=== PATIENT | male | born 1970 | race African-American/Black ===

== ENCOUNTER 2021-10-26 15:34 | Outpatient (CLI) | payer OTHER | END 2021-10-26 15:35 | disposition home or self-care (01) | LOC: SCSMRI 15:34 | PROVIDERS: ATTEND Nurse Practitioner Family | DX: S76.112D Strain of left quadriceps muscle, fascia and tendon, subsequent encounter (principal); S46.912A Strain of unspecified muscle, fascia and tendon at shoulder and upper arm level, left arm, initial encounter ==

== ENCOUNTER 2021-11-03 14:52 | Outpatient (CLI) | payer BC ==
[2021-11-03 16:08] LABS: #Monocytes 0.3 10x3/uL (0.0-1.1); #Neutrophils 2.4 10x3/uL (1.5-8.4); %Basophils 0.7 % (0.0-2.0); %Eosinophils 0.7 % (0.0-6.0); %Lymphocytes 36.9 % (18.0-47.0); %Monocytes 6.7 % (0.0-10.0); %Neutrophils 54.8 % (40.0-75.0); Mean Corpuscular HGB CONC 34.1 g/dL (32.0-36.0); Mean Corpuscular Hemoglobin 29.7 pg (27.0-33.0); Mean Corpuscular Volume 86.9 fl (81.2-95.1); Mean Platelet Volume 10.3 fl (7.4-10.4); Platelet Count 261 10x3/uL (150-450); RBC Distribution Width 13.2 % (11.5-14.5); Red Blood Cell (RBC) Count 4.72 10x6/uL (4.32-5.72); White Blood Cell (WBC) Count 4.3 10x3/uL (3.5-10.5)
[2021-11-03 16:31] LABS: Anion Gap 15 mmol/L (10-20); BUN (Urea Nitrogen) 13 mg/dL (8.9-20.6); Calc. Creatinine Clearance 0 mL/min (70-130); Calcium 9.8 mg/dL (7.8-10.44); Carbon Dioxide 27 mmol/L (22-29); Chloride 104 mmol/L (98-107); Glucose 87 mg/dL (70-105); Potassium 4.4 mmol/L (3.5-5.1); Sodium 142 mmol/L (136-145)
[2021-11-04 00:46] LABS: SARS-CoV-2 PCR by NAA Not Detected (NotDetected)
== END 2021-11-03 14:53 | disposition home or self-care (01) ==
LOC: LABBT 14:52
PROVIDERS: ATTEND Orthopaedic Surgery
DX: Z01.818 Encounter for other preprocedural examination (principal); S76.112A Strain of left quadriceps muscle, fascia and tendon, initial encounter; Z20.822 Contact with and (suspected) exposure to COVID-19
CPT/HCPCS: 80048; 85025; 93005; 93010; U0003; U0005

== ENCOUNTER 2021-11-07 08:53 | Day surgery (SDC) | payer OTHER ==
[2021-11-04 08:58] VITALS: BMI 33.0
[2021-11-07] MEDS ORDERED: Midazolam HCl 2 mg/2 ml Vial ONE (11:03)
[2021-11-07] MEDS ORDERED: fentaNYL Citrate/PF 100 MCG/2 ML SYRINGE ONE (11:18)
[2021-11-07] MEDS ORDERED: CEFAZOLIN 2 GM VIAL ONE ×2 (11:29→11:30)
[2021-11-07] MEDS ORDERED: Sodium Chloride 0.9% 100 ML ONE (11:30)
[2021-11-07] MEDS ORDERED: PROPOFOL 200 MG/20 ML VIAL ONE (11:55)
[2021-11-07] MEDS ORDERED: Lidocaine 1% PF 5 ML VIAL ONE (11:55)
[2021-11-07] MEDS ORDERED: Dexamethasone 20 MG/5 ML VIAL ONE (11:55)
[2021-11-07] MEDS ORDERED: Ondansetron PF 4 MG/2 ML Vial ONE (11:55)
[2021-11-07] MEDS ORDERED: Ketorolac Tromethamine 30 MG/ML VIAL ONE (11:55)
[2021-11-07] MEDS ORDERED: EPINEPHrine 1 MG/ML AMP ONE (13:11)
[2021-11-07] MEDS ORDERED: Bupivacaine PF 0.5% 30 ML VIAL ONE (13:11)
[2021-11-07] MEDS ORDERED: Fentanyl 100 MCG/2 ML VIAL ONE (13:51)
[2021-11-07] MEDS ORDERED: Meperidine HCl/PF 25 MG/ML VIAL ONE (13:54)
[2021-11-07] MEDS ORDERED: Labetalol HCl 100 MG/20 ML VIAL ONE (13:57)
== END 2021-11-07 16:35 | disposition home or self-care (01) ==
LOC: SDC 08:53
PROVIDERS: ATTEND Orthopaedic Surgery
PROC: 0LQM0ZZ Repair Left Upper Leg Tendon, Open Approach (ICD-10-PCS; principal; 2021-11-07)
DX: S76.112A Strain of left quadriceps muscle, fascia and tendon, initial encounter (principal); E66.9 Obesity, unspecified; Z68.33 Body mass index [BMI] 33.0-33.9, adult; X50.0XXA Overexertion from strenuous movement or load, initial encounter; Y93.01 Activity, walking, marching and hiking; Y99.0 Civilian activity done for income or pay
CPT/HCPCS: 76000; C1713; J0171; J1100; J1885; J2175; J2250; J2405; J2704; J3010; J3490; S0020

== ENCOUNTER 2023-05-02 11:41 | Outpatient (CLI) | payer BC | END 2023-05-02 11:42 | disposition home or self-care (01) | LOC: SCSMRI 11:41 | PROVIDERS: ATTEND Orthopaedic Surgery | DX: M48.062 Spinal stenosis, lumbar region with neurogenic claudication (principal); M47.816 Spondylosis without myelopathy or radiculopathy, lumbar region; Q76.49 Other congenital malformations of spine, not associated with scoliosis | CPT/HCPCS: 72148 ==